=== PATIENT | female | born 1970 | race Caucasian/White ===

== ENCOUNTER 2018-06-27 16:34 | Emergency (ER) | payer OTHER, MEDICAID ==
[~2018-06-27] VITALS: Ht 160 cm; Wt 59.4 kg
[~2018-06-27 16:34] MED LIST: AMOXICILLIN500 M1; FLEXERIL PO; IBUPROFEN 600600 M1 PO; KEFLEX500 MG PO; MEDROLDOSEPACK PO; ONDANSETRON HCL4 M2 PO; PREDNISONE50 MG PO; PROMETHAZINE D480 ML PO; TRAMADOL 50 MG50 MG PO; ULTRAM 50MG TAB50 MG PO; ZPAK PO
[2018-06-27] MEDS ORDERED: OMEPRAZOLE 20 M20 M1 PO (16:46)
[2018-06-27] MEDS ORDERED: BUTALB-APAP-CA1 EACH PO (16:47)
[2018-06-27 18:14] LABS: ABSOLUTE BASOPHILS 0.1 thou/uL (0.0-0.2); ABSOLUTE EOSINOPHILS 0.2 thou/uL (0.0-0.7); ABSOLUTE LYMPHOCYTES 1.8 thou/uL (0.8-5.3); ABSOLUTE MONOCYTES 0.4 thou/uL (0.0-1.2); ABSOLUTE NEUTROPHILS 4.4 thou/uL (1.6-8.1); EOSINOPHILS 2.6 %; HEMATOCRIT 38.1 % (37.0-47.0); HEMOGLOBIN 12.9 gm/dL (12.0-15.0); MCH 29.8 pg (26.0-34.0); MCHC 33.9 g/dL (28.0-37.0); MCV 88.1 fL (80.0-100.0); MONOCYTES 6.2 %; MPV 6.8 fl. (7.2-11.1); NUCLEATED RBCS 0 /100WBC; PLATELET COUNT* 302 thou/uL (150-400); POLYS 64.2 %; RBC 4.32 mil/uL (4.20-5.00); RDW-CV 13.5 % (10.5-14.5); WBC 6.9 thou/uL (4.0-11.0)
[2018-06-27 18:19] LABS: ANION GAP 4 mmol/L (7-16); BUN 7 mg/dL (7-18); CALCIUM 8.4 mg/dL (8.5-10.1); CHLORIDE 104 mmol/L (98-107); CO2 31 mmol/L (21-32); CREATININE 0.5 mg/dL (0.6-1.3); GLUCOSE 101 mg/dL (70-99); POTASSIUM 3.7 mmol/L (3.5-5.1); SODIUM 139 mmol/L (136-145)
[2018-06-27 18:26] LABS: ALBUMIN 3.4 g/dL (3.4-5.0); ALKALINE PHOSPHATASE 56 U/L (46-116); SGOT 13 U/L (15-37); SGPT 22 U/L (30-65); TOTAL BILIRUBIN 0.3 mg/dL (<0.1-1.0); TOTAL PROTEIN 6.7 g/dL (6.4-8.2); TROPONIN-I LEVEL <0.06 ng/mL (<0.06)
[2018-06-27] MEDS ORDERED: VALIUM5 MG PO (21:00)
[2018-06-27] MEDS ORDERED: SCOPOLAMINE1 EACH TRANSDERM (21:00)
[2018-06-27] MEDS ORDERED: ONDANSETRON HCL4 M2 PO (21:00)
[2018-06-27 21:11] LABS: URINE BILIRUBIN NEGATIVE (Negative); URINE BLOOD TRACE (Negative); URINE CLARITY CLEAR; URINE COLOR YELLOW; URINE GLUCOSE-RANDOM NEGATIVE (Negative); URINE KETONES TRACE (Negative); URINE LEUKOCYTES NEGATIVE (Negative); URINE NITRITE NEGATIVE (Negative); URINE PROTEIN NEGATIVE (Negative); URINE SPECIFIC GRAVITY <= 1.005 (1.005-1.030); URINE UROBILINOGEN 0.2 E.U./dl (0.2-1.0)
[2018-06-27 21:58] VITALS: BP 126/72
--- NOTE | 2018-06-28 13:03 | EKG ---
[place] [address] ELECTROCARDIOGRAM REPORT Name: DAMIÁN DUMONT Room: [facility]#: [id number] Admission: 06/27/18 Attend Phys: Discharge: 06/27/18 Date of : 70 Report #: [id number] THIS REPORT FOR: //name// [facility] ED Test Date: 2018-06-27 Test Time: 16:40:59 Pat Name: DAMIÁN DUMONT Department: Room: Gender: F Manager Visual: KRISTA : 1970 Requested By: Vicky Culver Order Number: [id number] MD: Sage Wright Measurements Intervals [place] Rate: 74 P: 37 [place]: 156 QRS: 5 QRSD: 99 T: 19 QT: 374 QTc: 415 Interpretive Statements Sinus rhythm Low voltage, precordial leads No previous ECG available for comparison Electronically Signed On 06-28-2018 13:03:14 CDT by Sage Wright [email or web address] <ELECTRONICALLY SIGNED> By: Sage Wright MD, [facility] 06/28/18 1303 1640 [facility] Sage Wright MD, FACC /EPI
== END 2018-06-27 21:59 | disposition home or self-care (01) ==
LOC: M.ERS 16:34
PROVIDERS: Nurse Practitioner Family
DX: H81.13 Benign paroxysmal vertigo, bilateral (principal); R51 Headache; R20.0 Anesthesia of skin; R20.2 Paresthesia of skin; K21.9 Gastro-esophageal reflux disease without esophagitis

== ENCOUNTER 2019-06-29 16:57 | Emergency (ER) | payer OTHER, MEDICAID ==
[~2019-06-29] VITALS: Ht 154.9 cm; Wt 66.2 kg
[~2019-06-29 16:57] MED LIST changes: +BUTALB-APAP-CA1 EACH PO; +OMEPRAZOLE 20 M20 M1 PO; +SCOPOLAMINE1 EACH TRANSDERM; +VALIUM5 MG PO; +ZOFRAN ODT4 MG PO
[2019-06-29 17:39] LABS: ABSOLUTE EOSINOPHILS 0.3 thou/uL (0.0-0.7); ABSOLUTE LYMPHOCYTES 2.3 thou/uL (0.8-5.3); ABSOLUTE MONOCYTES 0.5 thou/uL (0.0-1.2); BASOPHILS 0.7 %; EOSINOPHILS 4.3 %; HEMATOCRIT 37.1 % (37.0-47.0); HEMOGLOBIN 12.7 gm/dL (12.0-15.0); LYMPHOCYTES 38.4 %; MCH 29.3 pg (26.0-34.0); MCHC 34.2 g/dL (28.0-37.0); MCV 85.7 fL (80.0-100.0); MONOCYTES 7.5 %; MPV 6.8 fl. (7.2-11.1); NUCLEATED RBCS 0 /100WBC; PLATELET COUNT* 272 thou/uL (150-400); POLYS 49.1 %; RBC 4.33 mil/uL (4.20-5.00); RDW-CV 13.9 % (10.5-14.5); WBC 6.1 thou/uL (4.0-11.0)
[2019-06-29 17:48] LABS: ANION GAP 7 mmol/L (7-16); BUN 12 mg/dL (7-18); CALCIUM 8.6 mg/dL (8.5-10.1); CHLORIDE 103 mmol/L (98-107); CO2 27 mmol/L (21-32); CREATININE 0.6 mg/dL (0.6-1.3); GLUCOSE 109 mg/dL (70-99); POTASSIUM 3.8 mmol/L (3.5-5.1); SODIUM 137 mmol/L (136-145)
[2019-06-29 17:57] LABS: ALBUMIN 3.7 g/dL (3.4-5.0); ALKALINE PHOSPHATASE 85 U/L (46-116); LIPASE 107 U/L (73-393); SGOT 17 U/L (15-37); SGPT 28 U/L (30-65); TOTAL BILIRUBIN 0.2 mg/dL (<0.1-1.0); TOTAL PROTEIN 6.9 g/dL (6.4-8.2); TROPONIN-I LEVEL <0.06 ng/mL (<0.06)
[2019-06-29] MEDS ORDERED: BENTYL 20 MG TA20 M1 PO (19:35)
[2019-06-29] MEDS ORDERED: ACETAMINOPHEN-1 EAC1 PO (19:35)
[2019-06-29 20:16] LABS: URINE BILIRUBIN NEGATIVE (Negative); URINE BLOOD NEGATIVE (Negative); URINE CLARITY CLEAR; URINE COLOR YELLOW; URINE GLUCOSE-RANDOM NEGATIVE (Negative); URINE KETONES NEGATIVE (Negative); URINE LEUKOCYTES-REFLEX NEGATIVE (Negative); URINE NITRITE-REFLEX NEGATIVE (Negative); URINE PROTEIN NEGATIVE (Negative); URINE UROBILINOGEN 0.2 E.U./dl (0.2-1.0)
[2019-06-29] MEDS ORDERED: ZOFRAN ODT4 MG PO (20:39)
[2019-06-29 20:42] VITALS: BP 120/80
--- NOTE | 2019-06-30 12:41 | EKG ---
[place] [address] ELECTROCARDIOGRAM REPORT Name: DAMIÁN DUMONT Room: [facility]#: [id number] Admission: 06/29/19 Attend Phys: Discharge: 06/29/19 Date of : 70 Report #: [id number] THIS REPORT FOR: //name// [facility] ED Test Date: 2019-06-29 Test Time: 17:28:37 Pat Name: DAMIÁN DUMONT Department: Room: Gender: F Power Lineworker: : 1970 Requested By: Vicky Culver Order Number: [id number] MD: Huber Rodriugez Measurements Intervals [place] Rate: 79 P: 50 MD: 167 QRS: 4 QRSD: 98 T: 26 QT: 375 QTc: 430 Interpretive Statements Sinus rhythm Low voltage, precordial leads RSR' in V1 or V2, probably normal variant Compared to ECG 06/27/2018 16:40:59 RSR' in V1 or V2 now present Electronically Signed On 06-30-2019 12:40:56 CDT by Huber Rodriguez [email or web address] <ELECTRONICALLY SIGNED> By: Huber Rodriguez MD, [facility] 06/30/19 1240 1728 1728 Huber Rodriguez MD, [facility] /EPI
== END 2019-06-29 20:43 | disposition home or self-care (01) ==
LOC: M.ERS 16:57
PROVIDERS: Nurse Practitioner Family
DX: K76.0 Fatty (change of) liver, not elsewhere classified (principal); R10.11 Right upper quadrant pain; K21.9 Gastro-esophageal reflux disease without esophagitis

== ENCOUNTER 2019-12-21 14:28 | Emergency (ER) | payer OTHER, MEDICAID ==
[~2019-12-21] VITALS: Ht 154.9 cm; Wt 63.5 kg
[~2019-12-21 14:28] MED LIST changes: +ACETAMINOPHEN-1 EAC1 PO; +BENTYL 20 MG TA20 M1 PO
[2019-12-21 15:35] LABS: URINE BLOOD TRACE (Negative); URINE CLARITY CLEAR; URINE COLOR YELLOW; URINE GLUCOSE-RANDOM NEGATIVE (Negative); URINE KETONES 1+ (Negative); URINE LEUKOCYTES-REFLEX NEGATIVE (Negative); URINE NITRITE-REFLEX NEGATIVE (Negative); URINE PROTEIN TRACE (Negative); URINE SPECIFIC GRAVITY >= 1.030 (1.005-1.030); URINE UROBILINOGEN 0.2 E.U./dl (0.2-1.0)
[2019-12-21 15:37] LABS: ICTOTEST (BILI CONFIRMATORY) Negative (Negative); URINE BILIRUBIN 1+ (Negative)
[2019-12-21 16:05] LABS: INFLUENZA A ANTIGEN Negative (Negative); INFLUENZA B ANTIGEN Negative (Negative)
[2019-12-21 16:50] LABS: ABSOLUTE EOSINOPHILS 0.1 thou/uL (0.0-0.7); ABSOLUTE LYMPHOCYTES 0.8 thou/uL (0.8-5.3); ABSOLUTE MONOCYTES 0.3 thou/uL (0.0-1.2); ABSOLUTE NEUTROPHILS 2.4 thou/uL (1.6-8.1); BASOPHILS 0.4 %; EOSINOPHILS 1.8 %; HEMATOCRIT 40.8 % (37.0-47.0); HEMOGLOBIN 14.2 gm/dL (12.0-15.0); LYMPHOCYTES 21.4 %; MCH 29.1 pg (26.0-34.0); MCHC 34.7 g/dL (28.0-37.0); MCV 83.9 fL (80.0-100.0); MPV 7.1 fl. (7.2-11.1); NUCLEATED RBCS 0 /100WBC; PLATELET COUNT* 220 thou/uL (150-400); POLYS 68.4 %; RBC 4.86 mil/uL (4.20-5.00); RDW-CV 13.4 % (10.5-14.5); WBC 3.6 thou/uL (4.0-11.0)
[2019-12-21 17:00] LABS: CALCIUM 8.4 mg/dL (8.5-10.1); CREATININE 0.7 mg/dL (0.6-1.3); POTASSIUM 3.3 mmol/L (3.5-5.1)
[2019-12-21 17:05] LABS: ALBUMIN 3.4 g/dL (3.4-5.0); TOTAL BILIRUBIN 0.3 mg/dL (<0.1-1.0); TOTAL PROTEIN 7.5 g/dL (6.4-8.2)
[2019-12-21] MEDS ORDERED: ONDANSETRON ODT4 MG PO (17:59)
[2019-12-21 18:19] VITALS: BP 128/81
== END 2019-12-21 18:20 | disposition home or self-care (01) ==
LOC: M.ERS 14:28
PROVIDERS: Family Medicine; Physician Assistant
DX: M54.5 Low back pain (principal); R19.7 Diarrhea, unspecified; R11.2 Nausea with vomiting, unspecified; K21.9 Gastro-esophageal reflux disease without esophagitis

== ENCOUNTER 2021-04-19 19:10 | Emergency (ER) | payer OTHER, MEDICAID ==
[~2021-04-19] VITALS: Ht 154.9 cm; Wt 65.8 kg
[~2021-04-19 19:10] MED LIST changes: +ONDANSETRON ODT4 MG PO
[2021-04-19] MEDS ORDERED: TYLENOL 8 HOUR650 MG PO (19:22)
[2021-04-19] MEDS ORDERED: ADVIL200 M1 PO (19:22)
[2021-04-19 21:04] LABS: ABSOLUTE LYMPHOCYTES 1.1 thou/uL (0.8-5.3); ABSOLUTE MONOCYTES 0.3 thou/uL (0.0-1.2); BASOPHILS 0.5 %; EOSINOPHILS 0.7 %; LYMPHOCYTES 33.1 %; MCH 29.5 pg (26.0-34.0); MCHC 35.1 g/dL (28.0-37.0); MCV 83.9 fL (80.0-100.0); MONOCYTES 7.3 %; MPV 7.1 fl. (7.2-11.1); NUCLEATED RBCS 0 /100WBC; PLATELET COUNT* 219 thou/uL (150-400); POLYS 58.4 %; RBC 4.41 mil/uL (4.20-5.00); RDW-CV 13.8 % (10.5-14.5); WBC 3.5 thou/uL (4.0-11.0)
[2021-04-19 21:22] LABS: CALCIUM 8.2 mg/dL (8.5-10.1); CREATININE 0.6 mg/dL (0.6-1.3); POTASSIUM 3.4 mmol/L (3.5-5.1)
[2021-04-19 21:26] LABS: ALBUMIN 3.1 g/dL (3.4-5.0); TOTAL BILIRUBIN 0.4 mg/dL (<0.1-1.0); TOTAL PROTEIN 7.4 g/dL (6.4-8.2)
[2021-04-19] MEDS ORDERED: PROAIR HFA8.5 GM INH (23:07)
[2021-04-19] MEDS ORDERED: MEDROLDOSEPACK PO (23:07)
[2021-04-19] MEDS ORDERED: PROMETHAZINE-C473 ML PO (23:07)
[2021-04-19] MEDS ORDERED: ZPAK PO (23:07)
[2021-04-20 00:30] VITALS: BP 132/78
--- NOTE | 2021-04-21 14:35 | EKG ---
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
== END 2021-04-20 00:31 | disposition home or self-care (01) ==
LOC: M.ERS 19:10
PROVIDERS: Personal Emergency Response Attendant
DX: U07.1 COVID-19 (principal); J18.9 Pneumonia, unspecified organism; K21.9 Gastro-esophageal reflux disease without esophagitis; Z88.1 Allergy status to other antibiotic agents